=== PATIENT | female | born 1980 | race Caucasian/White ===

== ENCOUNTER 2016-10-01 07:58 | Day surgery (SDC) | payer MEDICAID, OTHER ==
[~2016-10-01 07:58] MED LIST: FENTANYL 250 MCG/5 ML AMP IV PRN; LACTATED RINGERS 1,000 ML IV SCH; MIDAZOLAM HCL 5 MG/5 ML VIAL IV PRN
[2016-10-01] MEDS ORDERED: LACTATED RINGERS 1,000 ML ONE (08:35)
[2016-10-01] MEDS ORDERED: IV START KIT ONE (08:36)
[2016-10-01] MEDS ORDERED: FENTANYL 250 MCG/5 ML AMP ONE (09:54)
[2016-10-01] MEDS ORDERED: MIDAZOLAM HCL 5 MG/5 ML VIAL ONE (09:54)
== END 2016-10-01 11:40 | disposition home or self-care (01) ==
LOC: SDC 07:58
PROVIDERS: ATTEND Internal Medicine Gastroenterology
DX: Z86.010 Personal history of colon polyps (principal); K59.8 Other specified functional intestinal disorders; M79.1 Myalgia
CPT/HCPCS: 45378; J3010; J2250; J7120